=== PATIENT | female | born 1980 | race Caucasian/White ===

== ENCOUNTER → 2017-08-11 14:16 | Outpatient (CLI) | payer BC, SELFPAY ==
--- NOTE | 2017-08-11 14:23 | US_ITS ---
US thyroid COMPARISON: Ultrasound thyroid 12/29/2016 HISTORY: Follow-up known thyroid cancer with subtotal removal right lobe of thyroid TECHNIQUE: Targeted ultrasound the thyroid gland FINDINGS: The isthmus of the gland is slightly thickened at 0.5 cm. There is thyroid tissue in the right lobe measuring 1.9 x 1.4 x 1.4 cm. The left lobe measures 1.3 x 1.9 x 4.57 m. There is homogeneous echogenicity in both lobes. IMPRESSION: Basically stable exam with moderate thyroid tissue remaining in right lobe, borderline enlarged left lobe ,no abnormal cystic or solid mass in either lobe
== END ==
PROVIDERS: Family Provider Family Medicine; PCP Family Medicine; Visit Provider Nurse Practitioner
DX: C73 Malignant neoplasm of thyroid gland (principal); Z09 Encounter for follow-up examination after completed treatment for conditions other than malignant neoplasm
CPT/HCPCS: 76536

== ENCOUNTER 2020-11-29 19:20 | Emergency (ER) | payer BC, SELFPAY ==
[2020-11-29 19:37] VITALS: BP 190/125; PULSE 115; RESP 18; TEMP 36.9; O2SAT 98; BMI 30.4
--- NOTE | 2020-11-29 19:46 | CT_ITS ---
PROCEDURE INFORMATION: Exam: CT Head Without Contrast Exam date and time: 11/29/2020 7:46 PM Age: 40 years old Clinical indication: Weakness, facial; Patient HX: Left facial droop no extremity weakness; Additional info: Left side facial weakness TECHNIQUE: Imaging protocol: Computed tomography of the head without contrast. Radiation optimization: All CT scans at this facility use at least one of these dose optimization techniques: automated exposure control; mA and/or kV adjustment per patient size (includes targeted exams where dose is matched to clinical indication); or iterative reconstruction. Other technique: STROKE PROTOCOL was implemented. COMPARISON: THY US thyroid 08/11/2017 2:26 PM FINDINGS: Brain: No definite acute intracranial findings. No intracranial hemorrhage. No edema, swelling or mass-effect. No significant white matter disease. Slightly heterogeneous attenuation in the thalami, but areas of hypoattenuation are only a couple of pixels diameter, no definite lacunar infarct. Minimal falcine calcification. Cerebral ventricles: The ventricles are normal for age. No hydrocephalus. Paranasal sinuses: No acute findings in the visualized sinuses. No significant sinus opacification or air-fluid levels. Minimal ethmoid mucosal thickening. Mastoid air cells: Partial opacification of right mastoid air cells with some air-fluid levels, consistent with acute mastoiditis, or effusion of other etiology, e.g. series 2, images 1 -9. Left mastoid is unremarkable, as visualized. Bones/joints: No acute skull fracture. No lytic lesions. Soft tissues: There are no soft tissue masses or fluid collections. IMPRESSION: 1. Correlate for acute right mastoiditis, versus mastoid effusion of other etiology. 2. There is no CT evidence of intracranial mass, intracranial hemorrhage, or acute infarct. 3. Additional nonemergency and chronic findings as above. ASSESSMENT: ASPECTS ([place] Stroke Program Early CT Score) is 10.
--- NOTE | 2020-11-29 19:46 | XR_ITS ---
PROCEDURE INFORMATION: Exam: XR Chest Exam date and time: 11/29/2020 7:46 PM Age: 40 years old Clinical indication: Other: Left sided facial droop, weakness. ; Additional info: Left side facial weakness TECHNIQUE: Imaging protocol: XR of the chest. Views: 2 views. COMPARISON: No relevant prior studies available. FINDINGS: Lungs: No acute pulmonary findings. No pulmonary consolidation. Lung volumes within normal limits. Pleural spaces: Unremarkable. No significant pleural effusion. No pneumothorax. Heart/Mediastinum: The cardiac silhouette is normal. Small pericardial fat pad suggested at the left cardiophrenic angle. Bones/joints: Mild thoracic spine degenerative changes with multilevel spondylosis. Minimal chronic appearing anterior wedge deformities in the midthoracic spine. No acute appearing fracture or high-grade listhesis. Soft tissues: Right upper quadrant abdominal surgical clips, correlate for history of cholecystectomy. No acute findings in the soft tissues. IMPRESSION: No acute findings.
--- NOTE | 2020-11-29 20:07 | HMH.EDGENADL ---
ED Disposition Clinical Impression: 's palsy Disposition: Home, Self-Care Condition on Discharge: Good Instructions: DI for Evans Palsy Additional Instructions: Prednisone and valcycovir as prescribed. Use artificial tears every hour in left eye while awake, tape left eyelid closed with scotch tape at night if unable to close eye when asleep. Follow up with your PCP this week. Prescriptions: predniSONE [Prednisone 20mg Tab] 60 mg PO DAILY #21 tab Transmission Status: Received by [facility] # Valacyclovir HCl [Valtrex] 1,000 mg PO TID #21 tab Transmission Status: Received by [facility] # Referrals: Jair Ohara MD [Primary Care Provider] - - Critical Care Critical Care Time: No Attestation: On 11/29/20, the high probability of a clinically significant, sudden or life threatening deterioration of the following system(s) required my full and direct attention, intervention and personal management. The time I documented below is in addition to time spent performing reported procedures but includes the following listed in this critical care notation. Medical Decision Making - [place] Inquiry Pt receiving controlled substance: No Vital Signs: 11/29/20 19:37 11/29/20 20:42 Temperature 98.5 F Temperature Source Oral Pulse Rate 86 Pulse Rate [Right Brachial] 115 H Respiratory Rate 18 20 Blood Pressure 135/88 Blood Pressure [Right Arm] 190/125 H Blood Pressure Mean [Right Arm] 146 Blood Pressure Source Manual Cuff/ Auscultation Blood Pressure Source [Right Arm] Automatic Cuff Blood Pressure Position Supine Blood Pressure Position [Right Arm] Sitting 02 Sat by Pulse Oximetry 98 98 Oxygen Delivery Method Room Air Room Air Orders (Tests/Meds): ED MEDICATIONS Generic Name Dose Route Start Last Admin Trade Name Freq PRN Reason Stop Dose Admin Sodium Chloride 1,000 mls @ 999 mls/hr 11/29/20 20:00 11/29/20 20:36 Sod Chlor 0.9% 1000ml Bag IV 11/29/20 21:00 Not Given .Q1H1M RICHARD Discontinued Medications Generic Name Dose Route Start Last Admin Trade Name Freq PRN Reason Stop Dose Admin Acyclovir 800 mg 11/29/20 20:30 11/29/20 20:34 Acyclovir 400mg Tab PO 11/29/20 20:31 800 mg ONCE ONE Administration Prednisone 60 mg 11/29/20 20:29 11/29/20 20:34 Prednisone 20mg Tab PO 11/29/20 20:30 60 mg ONCE ONE Administration ORDERS Category Date Time Status Complete Blood Count Auto Diff Stat Lab 11/29/20 19:46 Ordered Comprehensive Metabolic Panel Stat Lab 11/29/20 19:46 Ordered - Radiology Data #1 Image(s): Chest Image Reviewed: Yes I have reviewed radiologist's interpretation PROCEDURE INFORMATION: Exam: XR Chest Exam date and time: 11/29/2020 7:46 PM Age: 40 years old Clinical indication: Other: Left sided facial droop, weakness. ; Additional info: Left side facial weakness TECHNIQUE: Imaging protocol: XR of the chest. Views: 2 views. COMPARISON: No relevant prior studies available. FINDINGS: Lungs: No acute pulmonary findings. No pulmonary consolidation. Lung volumes within normal limits. Pleural spaces: Unremarkable. No significant pleural effusion. No pneumothorax. Heart/Mediastinum: The cardiac silhouette is normal. Small pericardial fat pad suggested at the left cardiophrenic angle. Bones/joints: Mild thoracic spine degenerative changes with multilevel spondylosis. Minimal chronic appearing anterior wedge deformities in the midthoracic spine. No acute appearing fracture or high-grade listhesis. Soft tissues: Right upper quadrant abdominal surgical clips, correlate for history of cholecystectomy. No acute findings in the soft tissues. IMPRESSION: No acute findings. - CT Data CT Scan: Head Time Received: 20:[address] Reviewed: Yes: I discussed the CT results w/the radiologist, I have viewed
[2020-11-29 20:42] VITALS: BP 135/88; PULSE 86; RESP 20; O2SAT 98
[2020-11-29 20:55] VITALS: BP 135/78; PULSE 75; RESP 18; TEMP 36.9; O2SAT 98
== END 2020-11-29 21:04 | disposition home or self-care (01) ==
PROVIDERS: Emergency Provider Emergency Medicine; PCP Family Medicine
DX: G51.0 Bell's palsy (principal); E06.3 Autoimmune thyroiditis
CPT/HCPCS: 70450; 71046; 99282

== ENCOUNTER → 2021-05-26 13:52 | Outpatient (CLI) | payer BC, SELFPAY ==
--- NOTE | 2021-05-26 13:59 | CT_ITS ---
FINAL REPORT TECHNIQUE: Thin section axial CT images with coronal and sagittal reformats were performed through the neck. This study was performed with techniques to keep radiation doses as low as reasonably achievable (ALARA). Individualized dose reduction techniques using automated exposure control or adjustment of mA and/or kV according to the patient''s size were employed. CLINICAL HISTORY: ENLARGED THYROID,THYROID CA FINDINGS: The lung apices are clear. The right lobe of the thyroid is diminutive. The left lobe of the thyroid appears normal. No discrete mass is identified. There is no significant adenopathy. The paranasal sinuses are well aerated. IMPRESSION: Essentially unremarkable exam. Reviewed, Interpreted and Dictated by Steve Kruse MD Transcribed by Elvia Cortes Authenticated by Steve Kruse MD on 05/26/2021 03:51:15 PM [facility]
== END ==
PROVIDERS: PCP Family Medicine; Visit Provider Family Medicine
DX: E04.9 Nontoxic goiter, unspecified (principal); C73 Malignant neoplasm of thyroid gland
CPT/HCPCS: 70490

== ENCOUNTER → 2023-03-01 10:26 | Outpatient (CLI) | payer BC, SELFPAY ==
--- NOTE | 2023-03-01 10:43 | US_ITS ---
FINAL REPORT TECHNIQUE: Real-time grayscale and color ultrasound of the thyroid was performed. CLINICAL HISTORY: Follow-up; right lobe removal 2016 COMPARISON: None FINDINGS: The right thyroid lobe is small which may be due to partial resection. The left lobe is mildly enlarged. There is no mass or nodule identified. IMPRESSION: Small residual right thyroid lobe with mildly enlarged left lobe. No mass or nodule. Reviewed, Interpreted and Dictated by Magdiel Mejía III, MD Transcribed by Pili Thomas Authenticated and [facility]
== END ==
PROVIDERS: PCP Family Medicine; Visit Provider Nurse Practitioner
DX: E04.9 Nontoxic goiter, unspecified (principal); C73 Malignant neoplasm of thyroid gland
CPT/HCPCS: 76536

== ENCOUNTER 2023-10-12 13:22 | Outpatient (CLI) | payer BC, SELFPAY ==
--- NOTE | 2023-10-12 13:28 | MM_ITS ---
PROCEDURE INFORMATION: Exam: Bilateral Screening 3D Mammography Exam date and time: 10/12/2023 1:16 PM Age: 42 years old Clinical indication: Screening examination TECHNIQUE: Imaging protocol: Bilateral Screening tomosynthesis and 2D mammography including computer-aided detection (CAD) when performed. COMPARISON: [facility] DIGITAL MAMM-SCREEN BILATERAL 02/24/2011 4:04 PM FINDINGS: MAMMOGRAPHY: Breast composition: There are scattered areas of fibroglandular density. Mass: None. Architectural distortion: None. Calcifications: No suspicious calcifications. Asymmetric density: None. Skin thickening: None. Axillary adenopathy: None. IMPRESSION: No mammographic evidence of malignancy. Annual screening is recommended unless otherwise clinically indicated. ASSESSMENT: BI-RADS Category 1: Negative
--- NOTE | 2023-10-12 13:28 | US_ITS ---
PROCEDURE: US TRANSVAGINAL CLINICAL INDICATION: AUB COMPARISON: No exams were available for comparison FINDINGS: Transvaginal and transabdominal sonographic images of the pelvis were obtained. UTERUS: 8.3cm x 6.0cmx 5.4cm anteverted with a combined endometrial thickness of 8.3mm. Two scars are seen. Posterior to the fundal endometrium is a hyperechoic area measuring 2.1 cm x 2.0 cm x 2.6 cm. There is a small nabothian cyst in the cervix. LEFT OVARY: 4.5cmx2.3cmx2.2cm with a volume of 11.6ml. Seen transabdominally. There is a follicle measuring 2.3 cm. Not able to obtain flow. RIGHT OVARY: 2.7 cmx 1.4cmx1.8 cm with a volume of 3.5ml. Difficult to visualize well. Not able to obtain flow. Both ovaries are seen and appear normal. There is no fluid in the cul-de-sac. IMPRESSION: 1. Anteverted uterus normal in shape and size. The endometrium is normal. 2. Posterior to the fundal endometrium there is a hyperechoic area measuring 2.6 cm. 3. Both ovaries are difficult to see but appear normal. There is a 2.3 cm follicle in the left ovary. 4. No fluid in the cul-de-sac Dictated by: Brent Meyer MD 10/13/2023 08:48 Brent Meyer MD in OV 10/13/2023 08:48
== END 2023-10-12 23:59 | disposition home or self-care (01) ==
LOC: RAD 13:22
PROVIDERS: PCP Family Medicine; Visit Provider Obstetrics & Gynecology
DX: N93.9 Abnormal uterine and vaginal bleeding, unspecified (principal); Z12.31 Encounter for screening mammogram for malignant neoplasm of breast
CPT/HCPCS: 76830; 77063; 77067

== ENCOUNTER 2023-11-27 15:52 | Outpatient (CLI) | payer BC, SELFPAY ==
[2023-11-27 16:19] LABS: Basophils # 0.1 K/mm3 (0-0.2); Basophils % 0.8 % (0.1-2.0); Eosinophils # 0.1 K/mm3 (0.0-0.4); Eosinophils % 0.9 % (0.1-12.0); Hematocrit 43.3 % (37.0-47.0); Hemoglobin 14.5 g/dL (12.2-16.2); Lymphocytes # 3.1 K/mm3 (0.7-4.5); Lymphocytes % 30.2 % (10-50); Mean Corpuscular HGB Conc 33.5 g/dL (31.8-35.4); Mean Corpuscular Hemoglobin 31.3 pg (27.0-31.2); Mean Corpuscular Volume 93.4 fl (81-99); Mean Platelet Volume 7.7 fl (7.4-10.4); Monocytes # 0.4 K/mm3 (0.1-1.0); Monocytes % 3.9 % (1.7-9.3); Neutrophils # 6.5 K/mm3 (1.8-7.8); Neutrophils % 64.2 % (37.0-80.0); Platelet Count 264 K/mm3 (142-424); Red Blood Count 4.63 M/mm3 (4.20-5.40); Red Cell Distribution Width 13.2 % (11.5-17.5); White Blood Count 10.2 K/mm3 (4.8-10.8)
[2023-11-27 16:45] LABS: Alanine Aminotransferase 21 U/L (12-78); Albumin Level 4.3 g/dl (3.5-5.0); Albumin/Globulin Ratio 1.4 (1.1-1.8); Alkaline Phosphatase 73 U/L (38-126); Anion Gap 13.5 mEq/L (5-15); Aspartate Amino Transferase 24 U/L (14-36); Bilirubin,Total 0.5 mg/dl (0.2-1.3); Blood Urea Nitrogen 8 mg/dl (7-17); Calcium 9.5 mg/dl (8.4-10.2); Carbon Dioxide 23 mmol/L (22.0-30.0); Chloride 108 mmol/L (98-107); Estimated Glomerular Filt Rate 108 ml/min (>60); GFR (African American) 131 ML/MIN (>60); Glucose 112 mg/dl (74-100); Potassium 4.5 mmoL/L (3.5-5.1); Sodium 140 mmol/L (136-145); Total Protein,Serum 7.3 g/dl (6.3-8.2)
[2023-11-27 17:03] LABS: HCG,Quantitative < 2 mIU/ml (0-5.42)
== END 2023-11-27 23:59 | disposition home or self-care (01) ==
LOC: LAB 15:54
PROVIDERS: PCP Family Medicine; Visit Provider Obstetrics & Gynecology
DX: N94.6 Dysmenorrhea, unspecified (principal)
CPT/HCPCS: 36415; 80053; 84702; 85025; 86850; 86870

== ENCOUNTER 2023-11-30 06:58 | Inpatient (IN) | payer BC, SELFPAY ==
[2023-11-27 16:30] VITALS: BMI 30.5
[2023-11-30] VITALS (23 sets, daily range): BP systolic 114–141; BP diastolic 59–85; PULSE 74–97; RESP 16–22; TEMP 36.1–36.9; O2SAT 91–99
[2023-11-30] MEDS: LACTATED RINGERS 1000ML 1,000 ML 25 ML IV (06:50)
[2023-11-30 07:01] LABS: POC Glucose,Bedside 141 (70-110)
--- NOTE | 2023-11-30 07:07 | P.PNANES_ITS ---
[facility] Disclaimer: The information contained in this section may have been updated after the patient was seen, as this information can be updated by other users. Medical History History of COVID-19 Anxiety Diabetes Thyroid cancer Surgical History H/O thyroidectomy Hx of breast reduction, elective History of delivery History of tubal ligation History of laparoscopic cholecystectomy Family History Other Cancer Coronary artery disease Diabetes Heart attack Hypertension Stroke Social History Smoking Status: Never smoker alcohol intake: never substance use type: denies use current occupational status: employed Travel in the last 8 weeks: None [facility] Anesthesia Checklist Patient Identification Patient Identification: Arm Band and Verbal (Name & ) Structural Data Admitted From: Home Planned Operative Procedure/s: Lap. hysterectomy Consent for Planned Operative Procedure(s) Verified: Yes Verified Documents: Surgical Consent and History and Physical NPO Status Verified Time NPO: 00:00 Chart Verification Results Verified: CBC and BMP Additional verifications Anesthesia Reactions: No Hx Blood Transfusions: No Blood Transfusion Reaction: No Airway Assessment Mallampati Score:: Class III C-Spine Mobility Assessed: Yes TMJ Mobility Assessed: Yes Dentition: Good Dentition Neurological Assessment Level of Consciousness: Awake Hx Seizures: No Numbness or tingling in extremities: No Anesthesia Plan Anesthesia Risk discussed: Yes Anesthesia Plan: Verified ASA Class: II Anesthesia Type: General
[2023-11-30] MEDS: CEFAZOLIN SODIUM 2 GM in 0.9 % SODIUM CHLORIDE 100 ML IV (07:46)
[2023-11-30] MEDS: METRONIDAZ/SOD CHL 500 MG/100 ML PIGGYBACK 100 MG IV (07:49)
--- NOTE | 2023-11-30 08:31 | HMH.PHAINT1 ---
Pharmacy Intervention Comments: MEDICATION RECONCILIATION COMPLETED ON PATIENT USING EXTERNAL FILL HISTORY FROM PHARMACY AND LISANDRO REPORT. -BIMAL SCHWARTZ, GRAYD
[2023-11-30] MEDS: BUPIVACAINE 0.5% W/EPI 1:200,000 30ML VIAL 30 ML IJ (09:02)
[2023-11-30] MEDS: SODIUM CHLORIDE IRRIG SOLUTION 3,000 ML 3000 ML IR (09:15)
[2023-11-30] MEDS: METHYLENE BLUE 0.5% 10ML AMPULE 50 MG IV (10:16)
--- NOTE | 2023-11-30 11:36 | P.PNANES_ITS ---
[facility] Anesthesia Record Part I Anesthesia Record I Intake, IV Amount: 1,500 Hydration: Adequate Estimated blood loss (mL): 5 Urine output (mL): 0 Blood Pressure: 118/61 SaO2: 94 Pulse Rate: 91 Airway Patency: Patent Respiratory Rate: 22 Temperature: 97.5 F Patient is:: Drowsy Stable to PACU at:: 11:30
[2023-11-30] MEDS: MORPHINE 2MG/ML SYRINGE 2 MG IV (11:49)
--- NOTE | 2023-11-30 12:09 | SUR.PHASEI ---
REPORT CALLED TO OB STAFF, PT FEELS LIKE NEEDS TO URINATE, PLACED ON BEDPAN, UNABLE TO URINATE SO FAR.
[2023-11-30 12:28] LABS: Microscopic,Cath URINE MICROSCOPIC (MICROSCOPIC)
--- NOTE | 2023-11-30 12:28 | EXP.ANES.II ---
[facility] Anesthesia Record Part II Anesthesia Record Part II Discharge Time: 12:07 Destination: Obstetric PACU nurse assessment reviewed?: Yes Patient Condition:: Good Anesthesia Complications:: None Swallowing reflex intact?: Yes Airway Patency: Patent Cyanosis?: No Blood Pressure: 131/85 SaO2: 97 Respiratory Rate: 18 Pulse Rate: 80 Temperature: 97.7 F Mental Status: Alert & Oriented Pain level:: 6 Nausea and/or vomitting:: None Intake, IV Amount: 0 Hydration: Adequate
[2023-11-30 12:45] LABS: Appearance,Urine/Cath CLEAR (Clear); Bilirubin,Cath Negative (Negative); Blood, Urine/Cath Negative (Negative); Color,Urine/Cath YELLOW (Yellow); Glucose,Urine/Cath (UA) Negative (Negative); Ketones,Urine/Cath Negative (Negative); Leukocyte Esterase,Cath Negative (Negative); Nitrate,Cath Negative (Negative); Protein,Urine/Cath Negative (Negative); Urobilinogen,Cath 0.2 EU/dl (0.2)
--- NOTE | 2023-11-30 12:53 | P.HP_ITS ---
History of Present Illness *Admission Date: 11/30/23 *Reason for visit:: Hysterectomy *History of present illness: Olivia Fields is a 42yo presentingfor a preoperative appointment prior to hysterectomy. The patient reports in the last 6 weeks that she has had 3 menstrual cycles. Reports that these are so painful it feels like someone is taking a fishing hook and running it down the midline of her pelvis. It alters her daily life. From previous HPI: Transvaginal ultrasound showed a 2-1/2+ centimeter fibroid. The patient reports that she continues to have pelvic cramping and pain every single day with irregular bleeding. Her endometrial lining was 8.3 mm. Her uterus was normal in size. Patient reports that the cramping seems to be getting worse. She reported decreased libido, Vyleesi was prescribed but the patient states that it was because prohibitively expensive and she was unable to fill the Rx. Relevant history from her last visit - x1 and CSx2 -Ablation 10years and over the last year menses have been lasting 2-3 weeks. She is bleeding for longer periods of time -tubal 17 years ago -Endorses anxiety or depression concerns. thyroid cancer in 2017 and has been more anxious since. -reports supplementing magnesium which helps with insomnia. Also takes adderall but doesnt think this is the problem as she believes this slows her thoughts down -Denies EtOH use, tobacco or illcit drug use. -FHX: denies ovarian, colon or uterine cancer. sister breast ca at 25yo PFSH PFSH Disclaimer: The information contained in this section may have been updated after the patient was seen, as this information can be updated by other users. Medical History History of COVID-19 Anxiety Diabetes Thyroid cancer Surgical History H/O thyroidectomy Hx of breast reduction, elective History of delivery History of tubal ligation History of laparoscopic cholecystectomy Family History Other Cancer Coronary artery disease Diabetes Heart attack Hypertension Stroke Social History (Updated 11/30/23 @ 07:09 by Charles Adorno CRNA) Smoking Status: Never smoker alcohol intake: never substance use type: denies use current occupational status: employed Travel in the last 8 weeks: None Review of Systems Review of Systems Review of systems (narrative): Const: Denies headaches, fever/chills, weakness Eyes: Denies change in vision Cardiorespiratory: Denies chest pain, shortness of breath, and cough GI: Denies abdominal pain, change in BM, nausea, vomiting, constipation, diarrhea : See HPI; endorses pelvic pain. Denies genital lesions, vaginal itching and odor; denies leakage of urine, urinary urgency, frequency, dysuria and hematuria Endorses anxiety Endorses decreased libido Meds Home Medications and Allergies Home Medications ?Medication ?Instructions ?Recorded ?Confirmed ?Type blood-glucose sensor ([employer] G7 #1 ea 10/03/23 11/30/23 History Sensor device) levothyroxine 100 mcg tablet 100 mcg PO DAILY 10/03/23 11/30/23 History dextroamphetamine-amphetamine 10 20 mg PO TID 11/22/23 11/30/23 History mg tablet dulaglutide 0.75 mg/0.5 mL 0.75 mg SQ WEEKLY 11/22/23 11/30/23 History subcutaneous pen injector (Trulicity) levomefolate calcium 15 mg tablet 15 mg PO DAILY 11/22/23 11/30/23 History (L-Methylfolate) metoprolol succinate 100 mg 100 mg PO DAILY 11/22/23 11/30/23 History tablet,extended release 24 hr magnesium 1 tab PO DAILY 11/30/23 11/30/23 History New Prescriptions to Start Prescriptions: Allergies Allergy/AdvReac Type Severity Reaction Status Date / Time No Known Allergies Allergy Verified 11/30/23 06:23 Exam Data for Last 24 hours Vital signs and Labs for Last 24 Hours: Temp Pulse Resp BP Pulse Ox O2 Del Method O2 Flow Rate 97.7 F 82 18 120/75 96 Room Air 5 11/30/23 12:23 11/30/23 12:23 11/30/23 12:29 11/30/23 12:23 11/30/23 12:23 11/30/23 12:23 11/30/23 11:40 Laboratory Results - last 24 hr 11/30/23 06:50: POC Glucose 141 H I & O for Last 24 hours: Intake & Output 11/27/23 11/28/23 11/29/23 11/30/23 23:59 23:59 23:59 23:59 Intake Total 1500 / 1500 Balance 1500 / 1500 Weight 195 lb Narrative: Const: healthy appearing, NAD, well developed/nourished HEENT: No oral lesions Resp: Normal respiratory effort, no audible wheezing, symmetric chest rise Cardio: Regular rate GI: Abdomen soft, non-tender, non-distended. no guarding Skin: No rash or visible lesion Neuro:No focal deficits Extrem: No visible deformity Psych: Normal mood and demeanor Constitutional Constitutional: no acute distress *Routine HEENT Exam Head: Present normocephalic Eye: Present EOMI and PERRL ENT: Present mucous membranes moist *Routine Neck Exam Neck: Present supple; Absent lymphadenopathy *Routine Respiratory Exam Respiratory: Present CTA bilaterally *Routine Cardiovascular Exam Cardiovascular: Present RRR *Routine Abdominal Exam Abdominal: Present soft and normoactive bowel sounds; Absent tenderness *Routine Rectal Exam Rectal:: deferred *Routine Genitalia Exam Genitalia:: deferred *Routine Extremities Exam Extremities: Absent cyanosis, clubbing or edema *Routine Skin Exam Skin: Present warm; Absent rash *Routine Neurological Exam Neurological: Present alert and oriented X3 Assessment and Plan *Assessment and plan (1) Dysmenorrhea: Status: Acute Category: Medical Code(s): N94.6 - Dysmenorrhea, unspecified (2) Status post endometrial ablation: Status: Acute Category: Surgical Code(s): Z98.890 - Other specified postprocedural states (3) Anxiety: Status: Acute Category: Medical Code(s): F41.9 - Anxiety disorder, unspecified (4) Decreased libido: Status: Acute Category: Medical Code(s): R68.82 - Decreased libido (5) Abnormal uterine bleeding (AUB): Status: Acute Category: Medical Code(s): N93.9 - Abnormal uterine and vaginal bleeding, unspecified (6) 's palsy: Status: Acute Category: Medical Code(s): G51.0 - 's palsy Plan #AUB -Patient desires definitive surgical management -Patient was able to recall the surgery that was planned as well as all of the risk and benefits that we previously discussed. We reiterated the risk. The patient states that even if discharged home with a catheter it would be better than what she is currently experiencing. We again reviewed the risk of ureteral injury, bowel injury, infection, bleeding, postoperative infection. And all the previously listed below risk -Plan for TLH, salpingectomy, and cystoscopy. Possible unilateral oophorectomy. Possible total abdominal hysterectomy -The patient is requesting definitive surgical management with hysterectomy. She declines medical intervention. Reviewed the risks of major gynecologic surgery with the pt to include bleeding, infection and risk of damage to surrounding structures. I assessed the patient's understanding from her last visit and she was able to review most of the risk that I reviewed with her at the last visit. She thoroughly understands the risk of hysterectomy. Discussed risks of bleeding and pt consented to blood transfusion if deemed medically necessary. Discussed risks of infection, states she has no allergies to antibiotics and we will use ancef for infection ppx. Discussed risks of injury to the surrounding structures to include her bowel, bladder, ureters, and neurovascular bundles. Reviewed the risk that this may not alleviate her pelvic pain. Discussed that this could require further surgeries and prolong recovery and hospital stay. Discussed risk of fistula formation. Discussed that she would stay overnight to ensure adequate pain control and that she met all postop milestones and pt ag kaykay. She voiced understanding of all risks. I ensured she understood with teachback method of risks. Pt desires to proceed -CBC, test, type and screen ordered. -Infection prophylactic antibiotics ordered: Ancef 2g and metronidazole 500 mg IV -Postoperative course reviewed with the patient and explained that she should anticipate staying in the hospital 1-2 days until meeting all DC criteria, and pain is well controlled. -Transvaginal ultrasound: UTERUS: 8.3cm x 6.0cmx 5.4cm anteverted with a combined endometrial thickness of 8.3mm. Two scars are seen. Posterior to the fundal endometrium is a hyperechoic area measuring 2.1 cm x 2.0 cm x 2.6 cm. There is a small nabothian cyst in the cervix. LEFT OVARY: 4.5cmx2.3cmx2.2cm with a volume of 11.6ml. Seen transabdominally. There is a follicle measuring 2.3 cm. Not able to obtain flow. RIGHT OVARY: 2.7 cmx 1.4cmx1.8 cm with a volume of 3.5ml. Difficult to visualize well. Not able to obtain flow. Both ovaries are seen and appear normal. There is no fluid in the cul-de-sac.
[2023-11-30] MEDS: SODIUM CHLORIDE 0.9% 25ML BAG 25 ML IV (12:58)
[2023-11-30] MEDS: PROMETHAZINE HCL 25MG/ML 1ML VIAL 12.5 MG IV (12:58)
[2023-11-30 13:02] LABS: RBC,Urine/Cath Occasional # /hpf (0-3)
[2023-11-30] MEDS: LACTATED RINGERS 1000ML 1,000 ML 125 ML IV ×2 (13:02→20:17)
--- NOTE | 2023-11-30 13:10 | P.OP_ITS ---
Date of procedure: 12/01/23 Pre-op Diagnosis:: 1. Leiomyomatous uterus 2. Abnormal uterine bleeding 3. Heavy uterine bleeding 4. Pelvic pain 5. History of delivery and endometrial ablation Post-op Diagnosis:: 1. Leiomyomatous uterus 2. Abnormal uterine bleeding 3. Heavy uterine bleeding 4. Pelvic pain 5. History of delivery and endometrial ablation 6. Significant pelvic adhesions 7. Vesicouterine adhesions Procedure performed:: 1. Supracervical abdominal hysterectomy with bilateral salpingectomy. Aborted total laparoscopic hysterectomy 2. Adhesiolysis 3. Cystoscopy Surgeon:: Peace Murray DO Computer Systems Security Administrator(s):: Reena Roberts DO SWAGER OPERATOR:: Yohana Damico Anesthesia: GETA Estimated blood loss (mL): 500 Operative findings:: - EUA revealed normal appearing vulva and vagina, a mobile 8-week size uterus. Enlarged, stenotic cervical os impassable to dilators or uterine sound. - Operative findings demonstrated omental adhesions to the anterior abdominal wall. Pelvic adhesions to the bilateral adnexal villanueva. Thick very dense vesicouterine adhesions. The bowel and omentum were normal appearing. Lesions of endometriosis noted throughout the posterior cul-de-sac. Possible small 1 cm endometrioma noted on the left ovary. Operative note:: After informed consent was obtained and all questions were answered to the patient?s satisfaction in layman?s terms. She was taken to the Operating Room where general anesthesia was obtained without any difficulty. Pt was placed in dorsal lithotomy position using yellowfin stirrups. EUA revealed findings above Pt was taken back to the OR where GETA was obtained without difficulty. SCDs were placed and found to be working. The patient was placed in dorsal lithotomy position using yellow fin stirrups. The vagina and abdomen was prepped and draped in the normal sterile fashion. An indwelling catheter was placed and hooked to a bag of normal saline in order to backfill the bladder if needed at a later date. Weighted speculum was inserted into the vagina to visualize the cervix. A single tooth tenaculum was used to grasp the anterior lip of the cervix and an acorn uterine manipulator was placed. This manipulator was quickly expelled as the cervical os was not able to be adequately dilated from previous ablation. A sponge stick was placed in the vagina and used for uterine manipulation. Top gloves were removed and attention was turned to the abdominal portion.? Local anesthetic with epinephrine was injected infraumbilically, an 11mm infraumbilical incision was made sharply. Direct entry into the abdominal cavity was obtained with laparoscopic visualization. A intraabdominal pressure of 6mmHg was observed and CO2 gas was insufflated to create a pneumoperitoneum to a pressure of 15mmHg. The patient was placed in Trendelenburg to facilitate moving the bowel out of the operative field. A second 5mm incision was made to the right, lateral to the rectus muscles with attention to avoid vasculature. Trocar introduced under direct visualization. At this point the left lower quadrant was not able to be visualized secondary to omental adhesions to the anterior a bdominal wall. The LigaSure was used to carefully dissect these adhesions of the omentum down and allow exposure to the left lower quadrant. A third 5 mm left lower quadrant port was placed under careful direct visualization. Brief abdominal exam revealed anatomy as described above. The left fallopian tube was grasped at the fimbriated end. The ureters were visualized bilaterally and noted to be distal from the operative field. The LigaSure coagulation device was inserted and used to clamp, coagulate, and transect the mesosalpinx completing the salpingectomy. The mesosalpinx was followed to the round ligament and fulgurated with the LigaSure. The round and broad ligament were serially clamped, fulgurated and transected, with attention given to stay proximal to the uterine body. The anterior and posterior leaflet of the broad ligament were and the anterior broad ligament dissection was attempted to be continued anteriorly however secondary to significant dense scarring of the bladder to the cervix and lower uterine segment this dissection was unable to be completed. Attention was turned to the contralateral side and salpingectomy was completed. However at the level of the round ligament the bladder was backfilled and the bladder was noted to be extending just millimeters below the round ligament with dense scarring. Careful dissection allowed for the bladder to be pushed off the uterine sidewall and for dissection to be carried down to the level of the uterine arteries and internal cervical os/lower uterine segment. We used sharp dissection with the laparoscopic say avoiding coagulation as well as blunt probes with the peanut dissection tools. During this process the bladder was backfilled several times to allow for careful precise dissection of this very dense scar tissue. Ultimately it was felt that the scar tissue could not be taken down laparoscopically and likely would require a supracervical hysterectomy secondary to the dense adhesions. Decision was made to proceed with a total abdominal hysterectomy. A Pfannenstiel skin incision was made and carried down to the fascia with the bovie. The fascia was knicked in the midline and sharply extended laterally. Franklyn were used to grasp the anterior aspect of the fascia and the rectus muscle was bluntly and gently dissected free. There were two small areas of bleeding that were made hemostatic with the bovie. This process was repeated inferiorly. The rectus muscles were in the midline and the peritoneum was entered bluntly. Entry to the abdominal cavity was confirmed and the XL Suleiman O retractor was placed. The bowel was packed away with 3 moist lap sponges and careful attention was given to ensure no bowel was strangulated but then the Suleiman retractor. The uterus was evident upon entering the peritoneal cavity. The uterus was then exteriorized and noted to have the findings as above. The bladder was sharply and bluntly dissected off the underlying internal cervical os. Once it was felt that we were at the cervix two sharply curved Alonso clamps were placed at the level of the internal os and above the bladder adhesions. The scalpel was used to transect the uterine body. Specimen passed off and sent to pathology. Each clamp was suture ligated with a 0-vicryl transfixation stitch at each vaginal apex. The middle of the vaginal cuff was closed with running locking 0- Vicryl suture. The abdomen was copiously irrigated with warm normal saline. All areas were noted to be hemostatic. The Suleiman O retractor was removed and Surgicel powder was placed over the cuff for prophylaxis. The sigmoid colon was replaced back into the hollow of the sacrum. All instruments and laps were returned from the abdominal cavity. The Suleiman O retractor was removed. Lap count was correct. The omentum was pulled over the bowel. The peritoneum was reapproximated with 2-0 Monocryl. The rectus muscles were noted to be hemostatic and nicely returned to midline. The fascia was then closed in a running fashion with 0-vicryl x 2 meeting right of midline. No gaps or defects were appreciated. The subcutaneous tissue was irrigated. Any bleeders were made hemostatic with the bovie. The subcutaneous tissue was reapproximated in 2 layers with 2-0 Monocryl. The skin was closed in a subcuticular fashion with 4-0 monocryl to include the laparoscopic incisions. All incisions were covered with Dermabond. Cystoscopy: The Valadez catheter was removed.? The patient was removed from Trendelenburg. A diagnostic 70 degree cystoscope was placed and bladder distended with sterile water.? Inspection of the bladder showed a normal-looking, smooth bladder mucosa with no evidence of injury, suture, puckering, or other abnormalities.? Both ureteral meatuses were visualized and were noted to be expelling urine in routine fashion.? Cystoscope was removed. The patient tolerated the procedure well. The sponge, lap, and needle counts were correct, per nursing. Peace Murray, Obstetrics and Gynecology. Condition: stable Disposition: PACU Specimens:: Uterine body and bilateral fallopian tubes Complications:: none
[2023-11-30] MEDS: ACETAMINOPHEN 500MG TAB 1000 MG PO ×2 (14:47→23:58)
[2023-11-30] MEDS: HYDROMORPHONE 2MG/ML SYRINGE 1 MG IV ×2 (14:47→20:09)
[2023-11-30] MEDS: KETOROLAC 30MG/ML VIAL 30 MG IV ×2 (14:48→23:57)
[2023-11-30] MEDS: SODIUM CHLORIDE 0.9% 10ML FLUSH SYRINGE 10 ML IV (14:48)
[2023-11-30] MEDS: CEFAZOLIN SODIUM 1 GM in 0.9 % SODIUM CHLORIDE 50 ML IV ×2 (15:45→23:51)
[2023-11-30] MEDS: OXYCODONE 5MG IMMEDIATE RELEASE TABLET 5 MG PO ×2 (17:30→21:55)
[2023-11-30] MEDS: ENOXAPARIN 40MG/0.4ML SYRINGE 40 MG SQ (20:15)
[2023-11-30] MEDS: ONDANSETRON 4MG/2ML VIAL 4 MG IV (21:55)
[2023-12-01] VITALS (8 sets, daily range): BP systolic 81–116; BP diastolic 49–75; PULSE 73–95; RESP 16–20; TEMP 36.6–36.9; O2SAT 94–98
[2023-12-01] MEDS: HYDROMORPHONE 2MG/ML SYRINGE 1 MG IV ×4 (02:04→19:40)
--- NOTE | 2023-12-01 04:31 | PC.NURSE ---
Pt is alert and oriented x4. Pt has c/o moderate to severe abdominal pain this shift and has been treated per MAR. New IV placed in Left hand d/t positioning of previous IV and occlusion issues. Pt has multiple incisions to her abdomen (3 laparoscopic and a transverse incision), incision remains free of infection and no other changes noted from previous assessment. Abdominal binder remains in place as well. Pt V/S remain stable and pain is managed with medication. Pt denies needs at this time. Pt remains at bedside
[2023-12-01] MEDS: OXYCODONE 5MG IMMEDIATE RELEASE TABLET 5 MG PO ×3 (05:04→17:01)
[2023-12-01] MEDS: LEVOTHYROXINE 100MCG (0.1MG) TAB 100 MCG PO (06:05)
[2023-12-01] MEDS: SENNOSIDES 8.6MG/DOCUSATE 50MG TABLET 1 TAB PO (06:05)
[2023-12-01] MEDS: LACTATED RINGERS 1000ML 1,000 ML 125 ML IV ×2 (06:06→14:51)
[2023-12-01 07:24] LABS: Basophils % 0.2 % (0.1-2.0); Eosinophils # 0.1 K/mm3 (0.0-0.4); Eosinophils % 0.6 % (0.1-12.0); Hematocrit 31.4 % (37.0-47.0); Hemoglobin 10.5 g/dL (12.2-16.2); Lymphocytes # 3.4 K/mm3 (0.7-4.5); Lymphocytes % 30.7 % (10-50); Mean Corpuscular HGB Conc 33.4 g/dL (31.8-35.4); Mean Corpuscular Hemoglobin 31.8 pg (27.0-31.2); Mean Corpuscular Volume 95.2 fl (81-99); Mean Platelet Volume 7.8 fl (7.4-10.4); Monocytes # 0.7 K/mm3 (0.1-1.0); Monocytes % 6.1 % (1.7-9.3); Neutrophils # 6.9 K/mm3 (1.8-7.8); Neutrophils % 62.4 % (37.0-80.0); Platelet Count 221 K/mm3 (142-424); Red Cell Distribution Width 13.6 % (11.5-17.5); White Blood Count 11.1 K/mm3 (4.8-10.8)
[2023-12-01] MEDS: ACETAMINOPHEN 500MG TAB 1000 MG PO ×3 (08:11→19:39)
[2023-12-01] MEDS: METOPROLOL SUCCINATE XL 100MG TABLET 100 MG PO (08:11)
[2023-12-01] MEDS: KETOROLAC 30MG/ML VIAL 30 MG IV ×3 (08:11→19:39)
--- NOTE | 2023-12-01 12:14 | P.PN_ITS ---
Subjective *Date: 12/01/23 *Time: 13:28 Interval history: Olivia Fields is a 43-year-old postop day #1 from a supracervical abdominal hysterectomy with bilateral salpingectomy. Patient reports that she is ambulating and voiding independently. She has not passed flatus. She rates her pain between a 4-8/10. States that the pain medicine is able to get her pain more adequately controlled. Exam Data for Last 24 hours Vital signs and Labs for Last 24 Hours: Temp Pulse Resp BP Pulse Ox O2 Del Method O2 Flow Rate 98.2 F 84 16 116/58 L 95 Room Air 5 12/01/23 08:05 12/01/23 08:05 12/01/23 08:05 12/01/23 08:05 12/01/23 08:15 12/01/23 10:05 11/30/23 11:40 Laboratory Results - last 24 hr 11/30/23 07:46: Urine Color Yellow, Urine Appearance Clear, Urine pH 6.0, Ur Specific [place] 1.020, Urine Protein Negative, Urine Glucose (UA) Negative, Urine Ketones Negative, Urine Blood Negative, Urine Nitrate Negative, Urine Bilirubin Negative, Urine Urobilinogen 0.2, Ur Leukocyte Esterase Negative, Urine RBC Occasional, Urine WBC None, Ur Squamous Epith Cells None, Urine Bacteria None 12/01/23 06:36: WBC 11.1 H, RBC 3.30 L, Hgb 10.5 L, Hct 31.4 L, MCV 95.2, MCH 31.8 H, MCHC 33.4, RDW 13.6, Plt Count 221, MPV 7.8, Neut % (Auto) 62.4, Lymph % (Auto) 30.7, [place] % (Auto) 6.1, Eos % (Auto) 0.6, Baso % (Auto) 0.2, Neut # (Auto) 6.9, Lymph # (Auto) 3.4, [place] # (Auto) 0.7, Eos # (Auto) 0.1, Baso # (Auto) 0.0 I & O for Last 24 hours: Intake & Output 11/28/23 11/29/23 11/30/23 12/01/23 23:59 23:59 23:59 23:59 Intake Total 1500 / 1500 Output Total 750 / 750 Balance 750 / 750 Constitutional Constitutional: no acute distress *Routine HEENT Exam Head: Present normocephalic Eye: Present EOMI and PERRL ENT: Present mucous membranes moist *Routine Neck Exam Neck: Present supple; Absent lymphadenopathy *Routine Respiratory Exam Respiratory: Present CTA bilaterally *Routine Cardiovascular Exam Cardiovascular: Present RRR *Routine Abdominal Exam Abdominal: Present soft, normoactive bowel sounds and tenderness (Appropriate for the postoperative period); Absent distended, rebound, guarding, firm or rigid Comments: Well-healing incisions. No signs of bleeding or infection. Covered in Dermabond. *Routine Extremities Exam Extremities: Present full ROM; Absent cyanosis, clubbing or edema *Routine Skin Exam Skin: Present intact and warm; Absent cyanosis, erythema, mottling or rash *Routine Neurological Exam Neurological: Present alert and oriented X3 Assessment and Plan *Assessment and plan (1) Dysmenorrhea: Status: Acute Category: Medical Code(s): N94.6 - Dysmenorrhea, unspecified (2) Status post endometrial ablation: Status: Acute Category: Surgical Code(s): Z98.890 - Other specified postprocedural states (3) Anxiety: Status: Acute Category: Medical Code(s): F41.9 - Anxiety disorder, unspecified (4) Abnormal uterine bleeding (AUB): Status: Acute Category: Medical Code(s): N93.9 - Abnormal uterine and vaginal bleeding, unspecified (5) S/P abdominal supracervical subtotal hysterectomy: Status: Acute Category: Surgical Code(s): Z90.711 - Acquired absence of uterus with remaining cervical stump Plan Overall doing well Encourage continued ambulation Encourage continued chewing gum Encouraged transitioning from IV pain medicine to strictly p.o. pain medicine Encourage incentive spirometry Remain inpatient until tomorrow for more adequate pain control
--- NOTE | 2023-12-01 16:15 | PC.NURSE ---
Lung sounds remain clear throughout. Bowel sounds are active in all 4 quadrants. Patient reports passing flatulence. Surgical site is clean, dry and intact. Surgical site is open to air.
[2023-12-02] MEDS: ACETAMINOPHEN 500MG TAB 1000 MG PO ×3 (01:50→12:11)
[2023-12-02] MEDS: OXYCODONE 5MG IMMEDIATE RELEASE TABLET 5 MG PO ×2 (01:50→09:54)
[2023-12-02] MEDS: KETOROLAC 30MG/ML VIAL 30 MG IV ×2 (01:50→07:23)
--- NOTE | 2023-12-02 03:06 | PC.NURSE ---
No acute changes to note from previous assessment. patient pain has been managed with a combination of Iv and oral medications. Vitals are stable. Iv saline locked per Dr Roberts order.
[2023-12-02 04:00] VITALS: BP 91/55; PULSE 89; RESP 17; TEMP 36.6; O2SAT 98
--- NOTE | 2023-12-02 07:06 | PC.NURSE ---
REPORT GIVEN TO GABRIELE HASSAN RN
[2023-12-02] MEDS: LEVOTHYROXINE 100MCG (0.1MG) TAB 100 MCG PO (07:24)
[2023-12-02 07:28] VITALS: BP 117/80; PULSE 81; RESP 16; TEMP 36.5; O2SAT 96
--- NOTE | 2023-12-02 07:44 | PC.NURSE ---
Pt stataed that her dexcom overnight and stated that it was OK to stick her for FSBS. SHe also Asked what her BP and heart rate were his am and refused her metoprolol.
--- NOTE | 2023-12-02 09:58 | PC.NURSE ---
Went in room to do licesnce check. pt stated her pain was a 6/10. Oral PRN pain meds given and pt provided fresh ice pack.
[2023-12-02 10:42] LABS: POC Glucose,Bedside 135 (70-110)
[2023-12-02 12:00] VITALS: BP 132/88; PULSE 81; RESP 16; TEMP 36.7; O2SAT 99
[2023-12-02] MEDS: IBUPROFEN 400 MG TABLET 800 MG PO (12:11)
--- NOTE | 2023-12-02 12:48 | PC.NURSE ---
Pt stated that upon pain re-assessment that her pain was about the same. Oxy 5mg was offered but pt refused stating, I am able to rest right now so i don't need anything right now. call light within reach.
[2023-12-02] MEDS: HYDROMORPHONE 2MG/ML SYRINGE 1 MG IV (13:19)
--- NOTE | 2023-12-02 13:22 | PC.NURSE ---
Pt called out and asked for pain medication. When entering pt's room she was tearful and stated, I think i waited too long to ask for pain medicine. Pt stated that her pain was a 9/10. Asked Mariana Loyola RN for a second opinion. PRN Dilaudid was given for pt crying in pain and rating her pain a 9/10.
--- NOTE | 2023-12-02 15:05 | P.DS_ITS ---
General Admission date:: 11/30/23 Discharge date: 12/02/23 HPI HPI HPI: POD # 2 s/p Supracervical abdominal hysterectomy with bilateral salpingectomy. Aborted total laparoscopic hysterectomy, Adhesiolysis, Cystoscopy She is feeling better today. Pain controlled. Voiding without difficulty and passing flatus. Tolerating regular diet. Denies fever/chills, chest pain and shortness of breath. She is ambulating well ad lorraine. Hospital Course Hospital Course Hospital Course: Olivia Fields is a 42yo who presented to [facility] for scheduled procedure. The patient reports in the last 6 weeks that she has had 3 menstrual cycles. Reports that these are so painful it feels like someone is taking a fishing hook and running it down the midline of her pelvis. It alters her daily life. Transvaginal ultrasound showed a 2-1/2+ centimeter fibroid. The patient reports that she continues to have pelvic cramping and pain every single day with irregular bleeding. Her endometrial lining was 8.3 mm. Her uterus was normal in size. Patient reports that the cramping seems to be getting worse. History of x1 and CSx2, Ablation 10 years ago - last year menses have been lasting 2-3 weeks. She is bleeding for longer periods of time. History of tubal ligating 17 years ago. Endorses anxiety or depression concerns. She had thyroid cancer in 2017 and has been more anxious since. She underwent Supracervical abdominal hysterectomy with bilateral salpingectomy. Aborted total laparoscopic hysterectomy; Adhesiolysis, Cystoscopy on 11/30/23. She did well postoperatively. Pain controlled. Voiding without difficulty and passing flatus. Tolerating regular diet. Denies fever/chills, chest pain and shortness of breath. Vital signs stable, afebrile. Heart regular rate and rhythm. Lungs clear to auscultation. Abdomen soft, nontender. Normal bowel sounds. No lower extremity swelling. Ambulating well ad lorraine. Normal hospital course. She was discharged to home on POD # 2 with instructions to follow-up in the office in 2 weeks or sooner if needed. Exam Data for Last 24 hours Vital signs and Labs for Last 24 Hours: Temp Pulse Resp BP Pulse Ox O2 Del Method O2 Flow Rate 98.1 F 81 16 132/88 99 Room Air 5 12/02/23 12:00 12/02/23 12:00 12/02/23 12:00 12/02/23 12:00 12/02/23 12:00 12/02/23 14:00 11/30/23 11:40 Laboratory Results - last 24 hr 12/02/23 10:35: POC Glucose 135 H I & O for Last 24 hours: Intake & Output 11/29/23 11/30/23 12/01/23 12/02/23 23:59 23:59 23:59 23:59 Intake Total 1500 / 1500 Output Total 750 / 750 1800 / 1800 0 / 0 Balance 750 / 750 -1800 / -1800 0 / 0 Constitutional Constitutional: no acute distress and cooperative *Routine HEENT Exam Head: Present normocephalic and atraumatic Eye: Absent conjunctivae pink ENT: Present mucous membranes moist *Routine Neck Exam Neck: Present full ROM *Routine Respiratory Exam Respiratory: Present CTA bilaterally and normal respiratory effort *Routine Cardiovascular Exam Cardiovascular: Present RRR *Routine Abdominal Exam Abdominal: Present soft and normoactive bowel sounds; Absent tenderness or distended Comments: laparoscopic incisions clean/dry/intact; small amount of dried blood on infaumbilical incision likely from abdominal binder rubbing. Pfannenstiel incision clean/dry/intact with surgical glue covering *Routine Rectal Exam Patient deferred: visual exam *Routine Exam Patient deferred: external exam *Routine Extremities Exam Extremities: Present full ROM; Absent edema or calf tenderness *Routine Neurological Exam Neurological: Present alert, moving all extremities and normal speech Results Data Completed and Pending Labs on day of discharge: Labs from last 24 hours 12/02/23 10:35 POC Glucose 135 H DS: Diagnosis Discharge Diagnosis (1) S/P abdominal supracervical subtotal hysterectomy: Status: Acute Code(s): Z90.711 - Acquired absence of uterus with remaining cervical stump (2) Abnormal uterine bleeding (AUB): Status: Acute Code(s): N93.9 - Abnormal uterine and vaginal bleeding, unspecified (3) Dysmenorrhea: Status: Acute Code(s): N94.6 - Dysmenorrhea, unspecified (4) Status post endometrial ablation: Status: Acute Code(s): Z98.890 - Other specified postprocedural states (5) Anxiety: Status: Acute Code(s): F41.9 - Anxiety disorder, unspecified Meds Home Medications and Allergies Home Medications ?Medication ?Instructions ?Recorded ?Confirmed ?Type blood-glucose sensor (Dexcom G7 #1 ea 10/03/23 11/30/23 History Sensor device) levothyroxine 100 mcg tablet 100 mcg PO DAILY 10/03/23 11/30/23 History dextroamphetamine-amphetamine 10 20 mg PO TID 11/22/23 11/30/23 History mg tablet dulaglutide 0.75 mg/0.5 mL 0.75 mg SQ WEEKLY 11/22/23 11/30/23 History subcutaneous pen injector (Trulicity) levomefolate calcium 15 mg tablet 15 mg PO DAILY 11/22/23 11/30/23 History (L-Methylfolate) metoprolol succinate 100 mg 100 mg PO DAILY 11/22/23 11/30/23 History tablet,extended release 24 hr magnesium 1 tab PO DAILY 11/30/23 11/30/23 History ibuprofen 800 mg tablet 800 mg PO Q8H PRN pain #20 tabs 12/02/23 Rx oxycodone 5 mg tablet 5 mg PO Q4-6H PRN pain #20 tabs 12/02/23 Rx oxycodone 5 mg tablet 5 mg PO Q4HP PRN Moderate Pain 12/02/23 Rx (4-6) #20 tabs polyethylene glycol 3350 17 17 g PO BID #119 grams 12/02/23 Rx gram/dose oral powder (Miralax) New Prescriptions to Start Prescriptions: Reena Peña oxycodone Reena Roberts oxycodone Reena Roberts polyethylene glycol 3350 [Miralax] Reena Roberts Allergies Allergy/AdvReac Type Severity Reaction Status Date / Time No Known Allergies Allergy Verified 11/30/23 06:23 Discharge Plan Disposition Patient Disposition: Home, Self-Care Condition: Good Discharge Order Discharge Orders: Discharge Order (Routine); Ordered 12/02/23 Ordered By: Reena Roberts Follow up Plan Follow up with: Peace Murray DO [Staff Physician] - 2 weeks Prescriptions/Medication Reconciliation: New oxycodone 5 mg Tablet 5 mg PO Q4HP PRN (Reason: Moderate Pain (4-6)) Qty: 20 0RF ibuprofen 800 mg tablet 800 mg PO Q8H PRN (Reason: pain) Qty: 20 0RF oxycodone 5 mg tablet 5 mg PO Q4-6H PRN (Reason: pain) Qty: 20 0RF polyethylene glycol 3350 [Miralax] 17 gram/dose powder 17 g PO BID Qty: 119 0RF Continued metoprolol succinate 100 mg tablet extended release 24 hr 100 mg PO DAILY Patient Comments: TAKE 1 TABLET BY MOUTH ONCE DAILY. levomefolate calcium [L-Methylfolate] 15 mg tablet 15 mg PO DAILY levothyroxine 100 mcg tablet 100 mcg PO DAILY Patient Comments: TAKE 1 TABLET BY MOUTH ONCE DAILY IN THE MORNING ON AN EMPTY STOMACH. (DME) Dexcom G7 Sensor Device See Rx Instructions .ROUTE .MEDSUPPLY Qty: 1 Rx Instructions: As directed dextroamphetamine-amphetamine 10 mg tablet 20 mg PO TID Trulicity 0.75 mg/0.5 mL pen injector 0.75 mg SQ WEEKLY Patient Comments: INJECT 0.5 ML UNDER THE SKIN ONCE WEEKLY. magnesium Tablet 1 tab PO DAILY Problem Reconciliation Problems Reviewed?: Yes Patient Discharge Instructions ACTIVITY: Limited activity DIET: continue same diet Additional Instructions: Additional Instructions: You had a supracervical hysterectomy (subtaotal) with bilateral salpingectomy. This means that only your uterus and bilateral fallopian tubes were removed. You still have your cervix. Please follow-up in the office for a postop visit at 2 weeks and at 6 weeks. Discharge: 1. Take 800 mg Ibuprofen every 8 hours as needed for pain. You can also take 1000 mg of Tylenol in between doses, every 6-8 hours and Oxycodone 5 mg, 1 tablet every 4-6 hours or more as needed. 2. Take Miralax twice daily for the first 2-3 days Activity: - No lifting more than 10 lbs for 6 weeks. - No driving for 7 days and/or while you are taking narcotic pain medication. - Your skin incisions are closed with stitches and surgical glue. Wound care - You have surgical glue covering your incision. This can come off in 7-10 days. Vaseline will break down the compound and remove the glue - You have stitches under your skin which will dissolve over the next 6 weeks as your body heals - Keep your wound clean and dry, ok to wash with soap and water but pat thoroughly dry Please call the office or return to the ER if you have any of the followin. heavy vaginal bleeding 2. pain that does not respond to your narcotic pain medication 3. dizziness or lightheadedness such that you lose consciousness 4. abnormal drainage from your incisions Questions or concerns: Print Language: Algerian Providers Primary Care Provider: Jair Ohara Admit Provider: Peace Murray Attending Provider: Peace Murray
== END 2023-12-02 16:30 | disposition home or self-care (01) | DRG 743 ==
LOC: OB 06:58
PROVIDERS: Admitting Provider Obstetrics & Gynecology; PCP Family Medicine; Visit Provider Obstetrics & Gynecology
DX: D25.9 Leiomyoma of uterus, unspecified (principal); N94.6 Dysmenorrhea, unspecified; Z79.899 Other long term (current) drug therapy; Z53.31 Laparoscopic surgical procedure converted to open procedure; N73.6 Female pelvic peritoneal adhesions (postinfective)
CPT/HCPCS: 58180; 58661; 36415; 81001; 82962; 85025; 96374; J3490; J0131; J0690; J1100; J1170; J1650; J1885; J2250; J2270; J2405; J2550; J3010; J7120

== ENCOUNTER 2024-07-25 12:20 | Emergency (ER) | payer BC, SELFPAY ==
[2024-07-25 12:29] VITALS: BP 165/118; PULSE 121; RESP 18; TEMP 36.6; O2SAT 100; BMI 31.9
--- NOTE | 2024-07-25 13:03 | CT_ITS ---
FINAL REPORT TECHNIQUE: Thin section axial CT images with coronal and sagittal reformats were performed after the administration of IV contrast. This study was performed with techniques to keep radiation doses as low as reasonably achievable (ALARA). Individualized dose reduction techniques using automated exposure control or adjustment of mA and/or kV according to the patient''s size were employed. CLINICAL HISTORY: R neck/face swelling/pain COMPARISON: 05/26/2021 FINDINGS: Nasopharynx, oropharynx, epiglottis, and larynx are unremarkable. The thyroid gland is homogeneous. There is enlargement and mild hyperemia of the right submandibular salivary gland with surrounding abnormal attenuation. Findings are consistent with sialadenitis. The parotid glands are unremarkable. There are new enlarged right submandibular and submental lymph nodes. A submandibular lymph node on axial image 51 measures 24 mm. The posterior triangle lymph node on the right measures 11 mm and was 6 mm. Paranasal sinuses are clear. No acute osseous abnormalities IMPRESSION: Findings most consistent with right submandibular sialadenitis. Lymphadenopathy on the right favored to be reactive. No evidence of abscess. Reviewed, Interpreted and Dictated by Awa Elkins MD Transcribed by Pili Thomas Authenticated and [facility]
--- NOTE | 2024-07-25 13:05 | ED_ITS ---
Discharge Plan Disposition Patient Disposition: Home, Self-Care Condition: Good Prescriptions Prescriptions: New ketorolac 10 mg tablet 10 mg PO Q8H PRN (Reason: pain) 3 Days Qty: 12 0RF clindamycin HCl 300 mg capsule 300 mg PO Q8H 7 Days Qty: 21 0RF No Action metoprolol succinate 100 mg tablet extended release 24 hr 100 mg PO DAILY Patient Comments: TAKE 1 TABLET BY MOUTH ONCE DAILY. dextroamphetamine-amphetamine 20 mg tablet 20 mg PO DAILY Patient Comments: TAKE 1 TABLET BY MOUTH 3 TIMES DAILY FOR 30 DAYS. metformin 500 mg tablet 500 mg PO DAILY Patient Comments: TAKE 1 TABLET BY MOUTH TWICE DAILY WITH A MEAL. levothyroxine 100 mcg tablet 100 mcg PO DAILY Patient Comments: TAKE 1 TABLET BY MOUTH ONCE DAILY IN THE MORNING ON AN EMPTY STOMACH. (DME) Dexcom G7 Sensor Device See Rx Instructions .ROUTE .MEDSUPPLY Qty: 1 Rx Instructions: As directed Trulicity 0.75 mg/0.5 mL pen injector 0.75 mg SQ WEEKLY Patient Comments: INJECT 0.5 ML UNDER THE SKIN ONCE WEEKLY. clindamycin HCl 300 mg Capsule 300 mg PO BID hydrocodone-acetaminophen 7.5-325 mg Tablet 1 tab PO Q6H PRN (Reason: Moderate Pain (Scale Score 5-6)) Referrals Follow up/Referrals: Jair Ohara MD [Primary Care Provider] - See instructions Mirtha Juarez APRN [Nurse Practitioner] - See instructions Activity Restrictions/Add. Instructions Additional Instructions/Restrictions: You were evaluated in the emergency department today. You were diagnosed with salivary gland inflammation. Please continue taking your clindamycin that was prescribed by your primary care provider. cupola charger your prescription for Toradol and take as needed for inflammation/pain. You may continue taking your [place] that was prescribed by your primary care provider as needed for pain as well. Sometimes sucking on hard candies can help dislodge any sort of salivary stones. Otherwise, make sure you stay hydrated. You may choose to follow-up with ENT for further assessment to make sure that the inflammation goes away. Please follow-up closely with primary care as well. Return to the emergency department for new or worsening symptoms. Clinical Impressions Clinical Impression: Acute sialoadenitis Stand Alone Forms Stand Alone Forms: Work/School Release Instructions Patient Instructions: DI for Acute Pain -- Adult Print Language Print Language: Estonian Discharge ED Provider: Viky Voss General Adult HPI General Chief complaint: PAIN Stated complaint: jaw and ear pain, R side Time Seen by Provider: 07/25/24 12:42 Mode of Arrival: Ambulatory Source of Information: Patient Description of Symptoms (Recalled from ER Triage Doc. by RN): Pt presents for evaluation of pain to her right jaw and face. Pt thought she had an abscessed tooth and was seen by her PCP. pt was prescribed clindaymycin and hydrocodone. Pt states he now has redness to the right side of her face and still feels swollen but now has swelling under her tongue. History of Present Illness HPI narrative: This patient is a 43-year-old female with a history of anxiety, diabetes, thyroid cancer status post thyroidectomy, prior hysterectomy and cholecystectomy presenting to the emergency department for evaluation with concern for swelling and pain to her right jaw and face. She states that this has been going on for over a week. She thought that she had an abscessed tooth, but she cannot isolated tooth is actually hurting. She does have a history of cavities with fillings but no other significant dental history. She was seen by her PCP, put on clindamycin and pain medication, but despite this symptoms are not getting better. She states that is difficult to eat and swallow. She denies any fevers, trismus, drooling, difficulty breathing, or other concerns. Related Data Home Medications ?Medication ?Instructions ?Recorded ?Confirmed blood-glucose sensor (Dexcom G7 #1 ea 10/03/23 07/25/24 Sensor device) levothyroxine 100 mcg tablet 100 mcg PO DAILY 10/03/23 07/25/24 dulaglutide 0.75 mg/0.5 mL 0.75 mg SQ WEEKLY 11/22/23 07/25/24 subcutaneous pen injector ([facility] metoprolol succinate 100 mg 100 mg PO DAILY 11/22/23 07/25/24 tablet,extended release 24 hr metformin 500 mg tablet 500 mg PO DAILY 12/08/23 07/25/24 dextroamphetamine-amphetamine 20 20 mg PO DAILY 12/14/23 07/25/24 mg tablet clindamycin HCl 300 mg capsule 300 mg PO BID 07/25/24 07/25/24 hydrocodone 7.5 mg-acetaminophen 1 tab PO Q6H PRN Moderate Pain 07/25/24 07/25/24 325 mg tablet (Scale Score 5-6) Previous Rx's ?Medication ?Instructions ?Recorded clindamycin HCl 300 mg capsule 300 mg PO Q8H 7 days #21 caps 07/25/24 ketorolac 10 mg tablet 10 mg PO Q8H PRN pain 3 days #12 07/25/24 tabs Allergies Allergy/AdvReac Type Severity Reaction Status Date / Time No Known Allergies Allergy Verified 07/25/24 12:35 PFSH [facility] Disclaimer: The information contained in this section may have been updated after the patient was seen, as this information can be updated by other users. Medical History Soft tissue avulsion History of COVID-19 Anxiety Diabetes Thyroid cancer Surgical History Hx of bilateral salpingectomy History of hysterectomy, supracervical Status post endometrial ablation H/O thyroidectomy Hx of breast reduction, elective History of delivery History of tubal ligation History of laparoscopic cholecystectomy Family History Other Cancer Coronary artery disease Diabetes Heart attack Hypertension Stroke Social History Smoking Status: Never smoker alcohol intake: never substance use type: denies use current occupational status: employed Travel in the last 8 weeks: None Have you lived/traveled outside [place] in past 30 days?: No Contact w/someone who lives/traveled outside [place] past 30 days?: No Exposure to someone with infectious disease in past 14 days?: No Do you have a fever (greater than 100.4 F or 38 C)?: No Have you tested positive for COVID-19: No Exposed to someone with COVID-19 in past 14 days?: No Do you have a sore throat?: No Do you have a cough?: No Do you have any weakness?: No Do you have any diarrhea?: No Are you experiencing any unusual bleeding?: No Do you have any muscle aches/pain?: No Do you have any abdominal pain?: No Are you experiencing loss of taste or smell?: No Other Medical History Have you received the Flu Vaccine for this season: No Have you received the Pneumonia Vaccine: No ROS Obtained: Yes All systems reviewed & no additional complaints except as documented Physical Exam General General appearance: alert and in no apparent distress Head Head exam: atraumatic and normocephalic Eye Eye exam: Present normal appearance, PERRL and EOMI ENT ENT exam: Present mucous membranes moist and normal external ear exam Expanded ENT Exam Nasal speculum exam: Bilateral: normal Mouth exam: Present tongue normal; Absent drooling, trismus, lip swelling, tongue elevation or tongue swelling Teeth exam: Present dental caries Comment: R submandibular swelling/induration/TTP, no drooling, stridor, trismus Neck Neck exam: Present normal inspection, full ROM and trachea midline; Absent tenderness Chest Chest inspection: Present normal inspection and symmetric chest wall rise; Absent tenderness Respiratory Respiratory exam: Present normal lung sounds bilaterally; Absent respiratory distress, wheezes, stridor or accessory muscle use Cardiovascular Cardiovascular exam: Present regular rate and normal rhythm Abdominal Exam Abdominal exam: Present soft; Absent distention, tenderness or guarding Extremities Exam Extremities exam: Present normal inspection, full ROM and normal capillary refill; Absent tenderness or edema Back Exam Back exam: Present normal inspection and full ROM; Absent tenderness Neurological Exam Neurological exam: Present alert, oriented X3, CN II-XII intact and normal gait; Absent motor sensory deficit Psychiatric Psychiatric exam: Present normal affect and normal mood Skin Skin exam: Present warm and dry Medical Decision Making Medical Records Medical records reviewed: Yes I reviewed the patient's medical records. Screening: Per USPSTF and CDC recommendations, given the prevalence of disease in our region, it is our hospital?s policy to screen for HIV and viral Hepatitis for all patients aged 18 and over and those with ongoing risk factors. [place] Inquiry Pt receiving controlled substance: No Vital Signs: 07/25/24 12:29 07/25/24 15:33 Temperature 98 F 98.3 F Temperature Source Oral Pulse Rate 75 Pulse Rate [Right] 121 H Respiratory Rate 18 20 Blood Pressure 167/93 H Blood Pressure [Right Arm] 165/118 H Blood Pressure Mean [Right Arm] 133 Blood Pressure Source [Right Arm] Automatic Cuff Blood Pressure Position [Right Arm] Sitting 02 Sat by Pulse Oximetry 100 Oxygen Delivery Method Room Air Room Air Lab Data Lab results reviewed: Yes I reviewed the patient's lab results. Lab Results 07/25/24 12:58: WBC 7.9, RBC 4.63, Hgb 14.5, Hct 40.8, MCV 88.1, MCH 31.3 H, M CHC 35.5 H, RDW 11.9, Plt Count 263, MPV 8.9, Neut % (Auto) 65.7, Lymph % (Auto) 24.8, [place] % (Auto) 7.7, Eos % (Auto) 1.1, Baso % (Auto) 0.3, Neut # (Auto) 5.2, Lymph # (Auto) 2.0, [place] # (Auto) 0.6, Eos # (Auto) 0.1, Baso # (Auto) 0.0, ESR 7, Sodium 140, Potassium 4.1, Chloride 105, Carbon Dioxide 25, Anion Gap 14.1, B UN 5 L, Creatinine 0.60, Estimated Creat Clear 173, Estimated GFR 108, Est GFR ( Amer) 131, Glucose 147 H, Calcium 9.5, Total Bilirubin 0.4, AST 50 H, ALT 71, Alkaline Phosphatase 83, C-Reactive Protein 15.5 H, Total Protein 7.6, Albumin 4.6, Globulin 3.0, Albumin/Globulin Ratio 1.5 07/25/24 12:58 07/25/24 12:58 Orders (Tests/Meds): ED MEDICATIONS Discontinued Medications Generic Name Dose Route Start Last Admin Trade Name Freq PRN Reason Stop Dose Admin Acetaminophen 1,000 mg 07/25/24 13:03 07/25/24 13:13 Acetaminophen 1,000mg/100ml Vial IV 07/25/24 13:04 1,000 mg ONCE ONE Administration Lactated Ringer's 1,000 mls @ 999 mls/hr 07/25/24 13:03 07/25/24 13:14 Lactated Ringer's 1000 Ml Bag IV 07/25/24 14:03 999 mls/hr .Q1H1M ONE Administration Iopamidol 75 ml 07/25/24 13:36 07/25/24 13:36 Iopamidol-370 (76%);100ml Bottle IV 07/25/24 13:37 75 ml ONCE ONE Administration Ketorolac Tromethamine 30 mg 07/25/24 13:03 07/25/24 13:13 Ketorolac 30mg/Ml Vial IV 07/25/24 13:04 30 mg ONCE ONE Administration Ondansetron HCl 4 mg 07/25/24 13:03 07/25/24 13:13 Ondansetron 4mg/2ml Vial IV 07/25/24 13:04 4 mg ONCE ONE Administration Sodium Chloride 10 ml 07/25/24 13:36 07/25/24 13:36 Sodium Chloride 0.9% 10ml Syr (Rad Only) IV 07/25/24 13:37 10 ml ONCE ONE Administration ORDERS Category Date Time Status CT soft tissue neck w con Stat Cat Scan 07/25/24 13:03 Completed CRP [C-Reactive Protein] Stat Lab 07/25/24 12:58 Completed Complete Blood Count Auto Diff Stat Lab 07/25/24 12:58 Completed Comprehensive Metabolic Panel Stat Lab 07/25/24 12:58 Completed ESR [Erythrocyte Sedimentation Rate] Stat Lab 07/25/24 12:58 Completed Medical Decision Narrative: In summary, this patient is a 43-year-old female presenting to the Emergency Department for evaluation of sided facial pain and swelling. Differential diagnoses considered include but are not limited to sialoadenitis, dental abscess, facial cellulitis, facial abscess, submandibular lymphadenopathy. Ruling out the most morbid conditions drove assessment. It should be noted patient's history includes obesity, diabetes, anxiety which may or may not be at goal therapy. This complicates all aspects of care by increasing patient's risk for morbidity. I reviewed patient's past medical records and noted prior history of thyroid cancer status post thyroidectomy, prior history of hysterectomy. On exam, the patient has right submandibular tenderness and swelling. She has no drooling, stridor, trismus. She is not in any distress. She is afebrile and nontoxic, but is mildly tachycardic and hypertensive in the setting of pain. Workup included CBC, CMP, ESR, CRP, CT soft tissue neck. She is given a bolus of IV fluids as well as IV Toradol, acetaminophen, and Zofran for symptomatic improvement. I independently interpreted CT scan prior to the radiologist read and noted sialoadenitis with reactive lymphadenopathy. Please see their read for final interpretation. Labs were obtained that demonstrated reassuring CBC with no significant leukocytosis or anemia, inflammatory markers are mildly elevated. Chemistry is reassuring with these in a very mildly elevated AST. On reassessment, patient had some improvement after administration of Toradol and Tylenol. She is sitting upright in no acute distress and vitals remain reassuring. She has no drooling, trismus, stridor, or other concerns and she is very nontoxic-appearing. Given this, I feel that she is appropriate for discharge home with management of sialoadenitis. She states that she is almost out of clindamycin which she had a very short course of, so I did give her a 7- day prescription for clindamycin. I also prescribed Toradol. I gave instructions for supportive management, close outpatient follow-up, and I did give referral to ENT if she continues to have issues. Strict return precautions given. Critical Care Critical Care Time Critical Care Time: No
[2024-07-25 13:06] LABS: Basophils % 0.3 % (0.1-2.0); Eosinophils # 0.1 K/mm3 (0.0-0.4); Eosinophils % 1.1 % (0.1-12.0); Hematocrit 40.8 % (37.0-47.0); Hemoglobin 14.5 g/dL (12.2-16.2); Lymphocytes % 24.8 % (10-50); Mean Corpuscular HGB Conc 35.5 g/dL (31.8-35.4); Mean Corpuscular Hemoglobin 31.3 pg (27.0-31.2); Mean Corpuscular Volume 88.1 fl (81-99); Mean Platelet Volume 8.9 fl (7.4-10.4); Monocytes # 0.6 K/mm3 (0.1-1.0); Monocytes % 7.7 % (1.7-9.3); Neutrophils # 5.2 K/mm3 (1.8-7.8); Neutrophils % 65.7 % (37.0-80.0); Platelet Count 263 K/mm3 (142-424); Red Blood Count 4.63 M/mm3 (4.20-5.40); Red Cell Distribution Width 11.9 % (11.5-17.5); White Blood Count 7.9 K/mm3 (4.8-10.8)
[2024-07-25 13:10] LABS: Albumin Level 4.6 g/dl (3.5-5.0); Chloride 105 mmol/L (98-107); Potassium 4.1 mmoL/L (3.5-5.1); Sodium 140 mmol/L (136-145)
[2024-07-25 13:13] LABS: Alanine Aminotransferase 71 U/L (12-78); Albumin/Globulin Ratio 1.5 (1.1-1.8); Alkaline Phosphatase 83 U/L (38-126); Anion Gap 14.1 mEq/L (5-15); Aspartate Amino Transferase 50 U/L (14-36); Bilirubin,Total 0.4 mg/dl (0.2-1.3); Blood Urea Nitrogen 5 mg/dl (7-17); Calcium 9.5 mg/dl (8.4-10.2); Carbon Dioxide 25 mmol/L (22.0-30.0); Creatinine Clearance Estimated 173 mL/min (50-200); Estimated Glomerular Filt Rate 108 ml/min (>60); GFR (African American) 131 ML/MIN (>60); Glucose 147 mg/dl (74-100); Total Protein,Serum 7.6 g/dl (6.3-8.2)
[2024-07-25] MEDS: KETOROLAC 30MG/ML VIAL 30 MG IV (13:13)
[2024-07-25] MEDS: ACETAMINOPHEN 1,000MG/100ML VIAL 1000 MG IV (13:13)
[2024-07-25] MEDS: ONDANSETRON 4MG/2ML VIAL 4 MG IV (13:13)
[2024-07-25] MEDS: LACTATED RINGERS 1000ML 1,000 ML 999 ML IV (13:14)
[2024-07-25 13:19] LABS: C-Reactive Protein 15.5 mg/L (0-4)
[2024-07-25] MEDS: SODIUM CHLORIDE 0.9% 10ML SYR (RAD ONLY) 10 ML IV (13:36)
[2024-07-25] MEDS: IOPAMIDOL-370 (76%);100ML BOTTLE 75 ML IV (13:36)
[2024-07-25 14:37] LABS: Erythrocyte Sedimentation Rate 7 mm/hr (0-20)
[2024-07-25 15:33] VITALS: BP 167/93; PULSE 75; RESP 20; TEMP 36.8; O2SAT 98
== END 2024-07-25 15:34 | disposition home or self-care (01) ==
PROVIDERS: Emergency Provider Emergency Medicine; PCP Family Medicine
DX: K11.21 Acute sialoadenitis (principal); R68.84 Jaw pain; R22.0 Localized swelling, mass and lump, head; F41.9 Anxiety disorder, unspecified; E66.9 Obesity, unspecified; E11.9 Type 2 diabetes mellitus without complications
CPT/HCPCS: 70491; 80053; 85025; 85651; 86140; 96361; 96374; 96375; 99285; J0131; J1885; J2405; J7120; Q9967